=== PATIENT | male | born 1985 | race Caucasian/White ===

== ENCOUNTER 2018-04-06 16:26 | Emergency (ER) | payer OTHER ==
[~2018-04-06] VITALS: Ht 185.4 cm; Wt 85.3 kg
[2018-04-06] MEDS ORDERED: ADDERALL XR 3030 MG PO (16:35)
[2018-04-06 17:11] LABS: ABSOLUTE EOSINOPHILS 0.3 thou/uL (0.0-0.7); ABSOLUTE LYMPHOCYTES 1.7 thou/uL (0.8-5.3); ABSOLUTE MONOCYTES 0.4 thou/uL (0.0-1.2); ABSOLUTE NEUTROPHILS 6.5 thou/uL (1.6-8.1); BASOPHILS 0.4 %; EOSINOPHILS 3.5 %; HEMATOCRIT 45.2 % (42.0-52.0); HEMOGLOBIN 15.6 gm/dL (14.0-18.0); LYMPHOCYTES 19.6 %; MCH 31.1 pg (26.0-34.0); MCHC 34.5 g/dL (28.0-37.0); MCV 90.3 fL (80.0-100.0); MPV 7.6 fl. (7.2-11.1); NUCLEATED RBCS 0 /100WBC; PLATELET COUNT* 302 thou/uL (150-400); POLYS 72.5 %; RBC 5.01 mil/uL (4.50-6.00); RDW-CV 12.8 % (10.5-14.5); WBC 8.9 thou/uL (4.0-11.0)
[2018-04-06 17:22] LABS: ANION GAP 8 mmol/L (7-16); BUN 6 mg/dL (7-18); CALCIUM 8.4 mg/dL (8.5-10.1); CHLORIDE 104 mmol/L (98-107); CO2 28 mmol/L (21-32); CREATININE 0.8 mg/dL (0.6-1.3); GLUCOSE 92 mg/dL (70-99); POTASSIUM 3.6 mmol/L (3.5-5.1); SODIUM 140 mmol/L (136-145)
[2018-04-06 17:28] LABS: ALBUMIN 3.8 g/dL (3.4-5.0); ALKALINE PHOSPHATASE 58 U/L (46-116); SGOT 7 U/L (15-37); SGPT 21 U/L (30-65); TOTAL BILIRUBIN 0.3 mg/dL (<0.1-1.0); TOTAL PROTEIN 6.9 g/dL (6.4-8.2); TROPONIN-I LEVEL <0.06 ng/mL (<0.06)
[2018-04-06 17:39] VITALS: BP 126/80
--- NOTE | 2018-04-07 11:09 | EKG ---
[place] [address] ELECTROCARDIOGRAM REPORT Name: STEVEN BOJORQUEZ Room: [facility]#: [id number] Admission: 04/06/18 Attend Phys: Discharge: 04/06/18 Date of : 87 Report #: [id number] THIS REPORT FOR: //name// [facility] ED Test Date: 2018-04-06 Test Time: 16:32:10 Pat Name: STEVEN BOJORQUEZ Department: Room: Gender: Road Tester: Marielle MAHAJAN : 1985 Requested By: Kevin May Order Number: [id number] MD: Master Ervin Measurements Intervals [place] Rate: 85 P: 47 ME: 150 QRS: 109 QRSD: 106 T: 69 QT: 398 QTc: 474 Interpretive Statements Sinus rhythm Left posterior fascicular block ST elev, probable normal early repol pattern Borderline prolonged QT interval No previous ECG available for comparison Electronically Signed On 04-07-2018 11:09:29 REFINING EQUIPMENT OPERATOR by Master Ervin [email or web address] <ELECTRONICALLY SIGNED> By: Master Ervin MD, FACC 04/07/18 1109 1632 1632 Master Ervin MD, [facility] /EPI
== END 2018-04-06 17:41 | disposition home or self-care (01) ==
LOC: M.ERS 16:26
PROVIDERS: Family Medicine
DX: R56.9 Unspecified convulsions (principal)